=== PATIENT | male | born 1990 | race Asian ===

== ENCOUNTER 2020-01-21 12:12 | Emergency (ER) | payer SELFPAY ==
[~2020-01-21] VITALS: Ht 177.8 cm; Wt 86.2 kg
[2020-01-21 12:35] VITALS: BP 121/61; Ht 177.8 cm; Wt 86.2 kg
== END 2020-01-21 13:27 | disposition home or self-care (01) ==
LOC: ED 12:12
DX: S91.012A Laceration without foreign body, left ankle, initial encounter (principal); W54.0XXA Bitten by dog, initial encounter; Y93.89 Activity, other specified; Y92.89 Other specified places as the place of occurrence of the external cause; Y99.8 Other external cause status
CPT/HCPCS: J0295; J2001